=== PATIENT | male | born 1965 | race Caucasian/White ===

== ENCOUNTER 2023-05-15 16:44 | Observation (INO) | payer SELFPAY ==
[2023-05-15 21:14] VITALS: BMI 30.9
[2023-05-15] MEDS ORDERED: Lactated Ringer's 1,000 ML IV SCH ×2 (21:45)
[2023-05-15] MEDS: Lactated Ringer's 1,000 ML IV SCH (22:19)
[2023-05-15] MEDS ORDERED: Acetaminophen 325 MG TAB PO PRN (23:38)
[2023-05-16 00:20] LABS: Troponin I 0.038 ng/mL (< 0.028)
[2023-05-16 04:48] LABS: #Neutrophils 3.5 thou/uL (1.40-6.50); %Basophils 0.2 % (0.0-1.0); %Monocytes 17.9 % (0.0-10.0); %Neutrophils 65.3 % (42.0-75.0); Hematocrit 41.4 % (42.0-52.0); Hemoglobin 14.2 g/dL (14.0-18.0); Mean Corpuscular HGB CONC 34.3 g/dL (32.0-36.0); Mean Corpuscular Hemoglobin 30.3 pg (27.0-31.0); Mean Corpuscular Volume 88.5 fl (78.0-98.0); Mean Platelet Volume 9.8 fL (7.4-10.4); Platelet Count 197 10x3/uL (130-400); RBC Distribution Width 13.1 % (11.5-14.5); Red Blood Cell (RBC) Count 4.68 mill/uL (4.70-6.10); White Blood Cell (WBC) Count 5.4 10x3/uL (4.8-10.8)
[2023-05-16 05:27] LABS: ALT (SGPT) 24 U/L (8-55); AST (SGOT) 21 U/L (5-34); Alkaline Phosphatase 61 U/L (40-110); Anion Gap 9 mmol/L (10-20); BUN (Urea Nitrogen) 21 mg/dL (8.4-25.7); Bilirubin, Total 0.4 mg/dL (0.2-1.2); Calc. Creatinine Clearance 113 mL/min (70-130); Calcium 8.4 mg/dL (7.8-10.44); Carbon Dioxide 29 mmol/L (22-29); Chloride 99 mmol/L (98-107); Estimated GFR 91; Glucose 94 mg/dL (70-105); Potassium 3.9 mmol/L (3.5-5.1); Sodium 133 mmol/L (136-145)
[2023-05-16] MEDS: Lactated Ringer's 1,000 ML IV SCH (06:37)
[2023-05-16] MEDS ORDERED: hydrALAZINE 20 MG/ML VIAL SLOW IVP PRN (06:40)
[2023-05-16] MEDS ORDERED: Losartan 25 MG TAB PO SCH (09:00)
[2023-05-16 12:38] VITALS: BP 167/85; TEMP 98.7
== END 2023-05-16 14:16 | disposition home or self-care (01) ==
LOC: INTOOBSV 20:51 → 2SW 20:51
PROVIDERS: ADMIT Family Medicine; ATTEND Family Medicine
PROC: B246ZZ4 Ultrasonography of Right and Left Heart, Transesophageal (ICD-10-PCS; principal; 2023-05-16)
DX: R55 Syncope and collapse (principal); E86.0 Dehydration; J10.1 Influenza due to other identified influenza virus with other respiratory manifestations; N17.9 Acute kidney failure, unspecified; I10 Essential (primary) hypertension; K21.9 Gastro-esophageal reflux disease without esophagitis; D17.0 Benign lipomatous neoplasm of skin and subcutaneous tissue of head, face and neck
CPT/HCPCS: 36415; 80053; 84146; 85025; 93306; 93880; 96372; G0378; J1650; J7120